=== PATIENT | female | born 1995 | race Caucasian/White ===

== ENCOUNTER 2017-01-15 17:11 | Inpatient (IN) | payer OTHER ==
--- NOTE | 2017-01-15 18:10 | C.PDOC ---
History Per: Patient History/Exam Limitations: no limitations Onset/Duration Of Symptoms: Days (2) Current Symptoms Are (Timing): Still Present Location Of Pain/Discomfort: RLQ Radiation Of Pain To:: None Quality Of Discomfort: "Pain" Associated Symptoms: denies: Loss Of Appetite, Back Pain, Chest Pain, Constipation, Urinary Symptoms Exacerbating Factors: None Alleviating Factors: None Recent travel outside of the [place]: No Additional History Per: Patient Abnormal Vaginal Bleeding: No Last Menstral Period: 12/26/16 <Suri Ghosh - Last Filed: 01/15/17 19:05> <Jaime Porter - Last Filed: 01/16/17 01:06> Time Seen by Provider: 01/15/17 17:32 Chief Complaint (Nursing): Abdominal Pain Past Medical History Reviewed: Historical Data, Nursing Documentation, Vital Signs Surgical History: Appendectomy Family History: States: No Known Family Hx - Social History Hx Alcohol Use: No Hx Substance Use: No - Immunization History Hx Tetanus Toxoid Vaccination: No Hx Influenza Vaccination: No Hx Pneumococcal Vaccination: No <Suri Ghosh Last Filed: 01/15/17 19:05> Review Of Systems Constitutional: Negative for: Fever, Chills Gastrointestinal: Positive for: Abdominal Pain (RLQ). Negative for: Nausea, Vomiting, Diarrhea, Constipation Genitourinary: Negative for: Dysuria, Frequency, Incontinence, Hematuria, Vaginal Discharge, Vaginal Bleeding Musculoskeletal: Negative for: Back Pain <Suri Ghosh Last Filed: 01/15/17 19:05> Physical Exam - Physical Exam Appears: Non-toxic, No Acute Distress Skin: Normal Color, Warm, Dry Head: Atraumatic, Normacephalic Eye(s): bilateral: Normal Inspection Oral Mucosa: Moist Neck: Normal ROM, Supple Cardiovascular: Rhythm Regular, No Murmur Respiratory: Normal Breath Sounds, No Rales, No Rhonchi, No Wheezing Gastrointestinal/Abdominal: Bowel Sounds, Soft, Tenderness (RLQ), No Guarding, No Rebound Back: Normal Inspection, No CVA Tenderness Pelvic: No Cervical Motion Tenderness, Adnexal Tenderness (right) Extremity: Bilateral: Atraumatic, Normal ROM Neurological/Psych: Oriented x3, Normal Speech, Normal Cognition <Suri Ghosh Last Filed: 01/15/17 19:05> ED Course And Treatment O2 Sat by Pulse Oximetry: 100 (on RA) Pulse Ox Interpretation: Normal <Suri Ghosh - Last Filed: 01/15/17 19:05> - Laboratory Results Result Diagrams: 01/15/17 18:53 01/15/17 18:53 <Jaime Porter - Last Filed: 01/16/17 01:06> ED OBSERVATION <Suri Ghosh - Last Filed: 01/15/17 19:05> Date of observation admission: 01/15/17 Time of observation admission: 21:25 <Jaime Porter - Last Filed: 01/16/17 01:06> - Observation admission statement Patient is being placed in observation because:: abdominal pain (Jaime Porter) - Goals of Observation Goals of observation are:: CT (Jaime Porter) - Progress Note Progress Note: 2124 Signed out to me at change of shift pending US and labs. Patient with mild leukocytosis. US shows normal flow, normal US. Patient with RLQ tenderness, which began as diffuse abdominal pain yesterday morning and states feels just like her stump appendicitis that she had before. Will send for CT to rule out stump appendicitis. 2211 Patient in no distress. 0105 IMPRESSION: 1. Acute stump appendicitis. 2. Involuting or ruptured RIGHT ovarian follicle/cyst. 3. Incidental/non-acute findings are described above. (Jaime Porter) Disposition - Disposition Disposition Time: 19:07 <Suri Ghosh - Last Filed: 01/15/17 19:05> Discussed With : Omar Al <Jaime Porter - Last Filed: 01/16/17 01:06> - Disposition Disposition: HOSPITALIZED Condition: STABLE - Clinical Impression Clinical Impression: Abdominal pain, Acute appendicitis - PA / GAS TECHNICIAN / Resident Statement MD/DO has reviewed & agrees with the documentation as recorded. - Scribe Statement The provider has reviewed the documentation as recorded by the Scribe <Suri Ghosh - Last Filed: 01/15/17 19:05> <Jaime Porter - Last Filed: 01/16/17 01:06> - Scribe Statement Karthik Peña All medical record entries made by the Scribe were at my direction and personally dictated by me. I have reviewed the chart and agree that the record accurately reflects my personal performance of the history, physical exam, medical decision making, and the department course for this patient. I have also personally directed, reviewed, and agree with the discharge instructions and disposition. (Suri Ghosh) Physician Patient Turnover Patient Signed Over To: Jaime Porter Handoff Comments: 22 y/o with rlq pain x 2 days s/p appy 09/03, stump appendicitis in 12/03; f/u labs and transvaginal ultrasound.; may require ct. <Suri Ghosh - Last Filed: 01/15/17 19:05>
[2017-01-15 18:49] LABS: RBC URINE 4 /hpf (0-3); TRANSITIONAL EPITHIAL < 1 /hpf (0-3); URINE BACTERIA RARE (<OCC); URINE BILIRUBIN NEGATIVE (NEGATIVE); URINE BLOOD 1+ (NEGATIVE); URINE COLOR Yellow (YELLOW); URINE GLUCOSE (UA) NORMAL (Normal); URINE KETONE TRACE mg/dL (NEGATIVE); URINE PROTEIN NEGATIVE (NEGATIVE); URINE UROBILINOGEN NORMAL mg/dL (0.2-1.0); WBC URINE 7 /hpf (0-5)
[2017-01-15 18:50] LABS: URINE LEUKOCYTE ESTERASE 1+ Leu/uL (Negative)
[2017-01-15 19:04] LABS: CHLORIDE 100 mmol/L (98-107); POTASSIUM 3.3 mmol/L (3.6-5.2); SODIUM 139 mmol/L (132-148)
[2017-01-15 19:06] LABS: GFR AFRICAN-AMERICAN > 60
[2017-01-15 19:07] LABS: ALB/GLOB RATIO 1.2 (1.0-2.1); ALKALINE PHOSPHATASE 82 U/L (38-126); ALT/SGPT 31 U/L (9-52); AST/SGOT 17 U/L (14-36); BILIRUBIN,TOTAL 0.6 mg/dL (0.2-1.3); BLOOD UREA NITROGEN 12 mg/dL (7-17); CALCIUM 8.7 mg/dl (8.6-10.4); CARBON DIOXIDE 25 mmol/L (22-30); GLUCOSE,RANDOM 85 mg/dL (65-105); TOTAL PROTEIN 7.2 g/dL (6.3-8.3)
[2017-01-15 19:09] LABS: BASO % 0.3 % (0.0-2.0); EOS % 7.8 % (0.0-4.0); HEMATOCRIT 37.2 % (34.0-47.0); LYMPH # 3.6 K/uL (1.0-4.3); LYMPH % 29.1 % (20.0-40.0); MEAN CELL VOLUME 92.9 fL (81.0-99.0); MEAN CORPUSCULAR HEMOGLOBIN 31.1 pg (27.0-31.0); MEAN CORPUSCULAR HGB CONC 33.5 g/dL (33.0-37.0); MEAN PLATELET VOLUME 9.1 fL (7.2-11.7); MONO # 0.8 K/uL (0.0-0.8); MONO % 6.8 % (0.0-10.0); RED CELL DISTRIBUTION WIDTH 13.3 % (11.5-14.5); WHITE BLOOD COUNT 12.2 K/uL (4.8-10.8)
--- NOTE | 2017-01-15 21:26 | US ---
EXAM: US Pelvis Complete, Transabdominal US Pelvis, Transvaginal CLINICAL HISTORY: 22 years old, female; Pain; Pelvic pain; Additional info: Right pelvic pain TECHNIQUE: Real-time transabdominal and transvaginal pelvic ultrasound (complete) with image documentation. Transvaginal imaging was used for better evaluation of the endometrium and adnexa. COMPARISON: No relevant prior studies available. FINDINGS: Uterus/cervix: The uterus measures 7.5 x 4.2 x 6.1 cm. The endometrial stripe measures 9 mm. Ovaries: The ovaries are not seen as separate structures Free fluid: No free fluid. Bladder: Unremarkable as visualized. Wall is normal thickness for degree of distention. IMPRESSION: Ovaries not seen as separate structures.. EXAM: US Pelvis, Transvaginal EXAM DATE/TIME: Exam ordered 01/15/2017 6:38 PM CLINICAL HISTORY: 22 years old, female; Pain; Pelvic pain; Additional info: Right pelvic pain TECHNIQUE: Real-time transvaginal pelvic ultrasound (complete) with image documentation. Transvaginal imaging was used for better evaluation of the endometrium and adnexa. COMPARISON: No relevant prior studies available. FINDINGS: Uterus/cervix: The uterus measures 6.9 x 3.5 x 4.4 cm. Endometrial stripe measures 1 cm in thickness. Right ovary: Right ovary measures 2.8 x 2 x 2.3 cm and contains a subcentimeter follicle. Blood flow is seen within the right ovary on color Doppler and pulse Doppler examination. Left ovary: The left ovary measures 3.2 x 1.2 x 2.7 cm. Subcentimeter follicles are present. Blood flow seen in the left ovary on color Doppler and pulsed Doppler examination. Free fluid: Small amount of free fluid is seen in the posterior cul-de-sac. Bladder: Empty bladder which cannot be evaluated with this probe. IMPRESSION: Normal pelvic ultrasound for a menstruating female.
[2017-01-15] MEDS ORDERED: Iohexol 240 (50 ml) ONE (22:35)
[2017-01-15] MEDS ORDERED: Iohexol 240 (50 ml) PO ONE (22:44)
[2017-01-15] MEDS ORDERED: Iodixanol 320 MG/ML 100 ML BOTTLE IV ONE (23:51)
--- NOTE | 2017-01-16 00:38 | CT ---
EXAM: CT Abdomen and Pelvis With Intravenous Contrast CLINICAL HISTORY: 22 years old, female; Pain; Abdominal pain; Localized; Right lower quadrant (rlq); Prior surgery; Surgery date: 6+ months; Additional info: Rlq pain, evaluate for stump appendicitis. Appendectomy 08/2016 TECHNIQUE: Axial computed tomography images of the abdomen and pelvis with intravenous contrast. All CT scans at this facility use one or more dose reduction techniques, viz.: automated exposure control; ma/kV adjustment per patient size (including targeted exams where dose is matched to indication; i.e. head); or iterative reconstruction technique. Coronal and sagittal reformatted images were created and reviewed. CONTRAST: 100 mL of [id number] administered intravenously. COMPARISON: No relevant prior studies available. FINDINGS: Lower thorax: No acute findings. ABDOMEN: Liver: Unremarkable. No mass. Gallbladder and bile ducts: No calcified stones. No ductal dilation. Pancreas: No ductal dilation. No mass. Spleen: No splenomegaly. Adrenals: No mass. Kidneys and ureters: No mass. No hydronephrosis. Stomach and bowel: No definite mural thickening. No obstruction. Appendix: Appendectomy. Enlarged appendiceal stump, measuring up to 1.0 in diameter. Mild stranding about appendiceal stump. PELVIS: Bladder: Unremarkable. Reproductive: 1.7 x 1.2 x 1.3 cm peripherally enhancing hypodensity with crenulated margins within RIGHT ovary. ABDOMEN and PELVIS: Intraperitoneal space: Trace free fluid within pelvis. No free air. Bones/joints: No acute fracture. Soft tissues: Unremarkable. Vasculature: Prominent vessels within pelvis. No aneurysm. Lymph nodes: No pathologically enlarged lymph nodes. IMPRESSION: 1. Acute stump appendicitis. 2. Involuting or ruptured RIGHT ovarian follicle/cyst. 3. Incidental/non-acute findings are described above.
[2017-01-16] MEDS ORDERED: Piperacill/Tazo 4.5gm in Dex 4.5 GM/100 ML BAG IVPB STA (00:51)
[2017-01-16] MEDS: Sodium Chloride 0.9% 1,000 ML IV SCH ×2 (03:00→17:32)
[2017-01-16] MEDS ORDERED: Ciprofloxacin 400mg/200ml D5W 400 MG/200 ML BAG IVPB SCH (03:00)
--- NOTE | 2017-01-16 03:23 | CP.PCM.HP ---
<Kim Lora E - Last Filed: 01/16/17 07:12> History of Present Illness - History of Present Illness History of Present Illness: CC: RLQ Abdominal Pain HPI: Patient is a 22 year old female with no past medical history who presents to the ED with RLQ abdominal pain that started yesterday at 8:30pm, while the patient was asleep. Patient states that her abdominal pain was initially diffuse in nature but it is currently localized to the RLQ and LLQ. Patient states that her RLQ abdominal pain is a constant 8/10 pulsating and pulling pain , while her LLQ pain is a 10/10 intermittent pain. Furthermore, patient reports diffuse cramping abdominal pain. Patient states that her pain is exacerbated with positional changes and sitting. Patient states that she had similar episode December 14, 2016, where she was admitted to [facility] and diagnosed with acute stump appendicitis. Patient was treated with IV antibiotics and was discharged with PO antibiotics. Patient states since her hospitalization at [facility], she has been experiencing intermittent abdominal distention. Currently, patient denies fever, nausea, vomiting, chest pain, SOB, diarrhea, constipation, change in bowel habits, hematochezia, urinary symptoms, change in appetite, recent sickness or contact but does admits to night sweats, chills and headache. PMD: None PMHx: denies PSHx: Appendectomy (09/15/[address] [facility] [address] Yesi Huerta) FHx: Mother: Nephroliathiasis Medications: None Allergies: NKDA Social History: Unemployed, lives with boyfriend and daughter. Denies tobacco, ETOH and illicit drug use Medications given in the ER: Zosyn 4.5gm IV Present on Admission - Present on Admission Any Indicators Present on Admission: No Review of Systems - Constitutional Constitutional: Chills, Headache, Night Sweats. absent: Excessive Sweating, Fever, Weight Gain, Weight Loss, Weakness - EENT Ears: absent: Dizziness - Cardiovascular Cardiovascular: absent: Chest Pain, Chest Pain at Rest, Chest Pain with Activity , Diaphoresis, Dyspnea, Palpitations, Radiating Pain - Respiratory Respiratory: absent: Dyspnea - Gastrointestinal Gastrointestinal: Abdominal Pain, Cramping. absent: Constipation, Diarrhea, Dysphagia, Hematochezia, Nausea, Vomiting Additional comments: Diffuse abdominal pain, more localized to the RLQ and LLQ - Genitourinary Genitourinary: absent: Dysuria, Flank Pain, Pyuria, Urinary Frequency, Urinary Urgency - Musculoskeletal Musculoskeletal: absent: Back Pain, Numbness, Tingling - Neurological Neurological: Headaches. absent: Dizziness - Endocrine Endocrine: absent: Excessive Sweating, Fatigue, Palpitations Past Patient History - Past Medical History & Family History Past Medical History?: Yes - Past Social History Smoking Status: Never Smoked - CARDIAC Hx Cardiac Disorders: No - PULMONARY Hx Respiratory Disorders: No - NEUROLOGICAL Hx Neurological Disorder: No - HEENT Hx HEENT Problems: No - RENAL Hx Chronic Kidney Disease: No - ENDOCRINE/METABOLIC Hx Endocrine Disorders: No - HEMATOLOGICAL/ONCOLOGICAL Hx Blood Disorders: No - INTEGUMENTARY Hx Dermatological Problems: No - MUSCULOSKELETAL/RHEUMATOLOGICAL Hx Musculoskeletal Disorders: No Hx Falls: No - GASTROINTESTINAL Hx Gastrointestinal Disorders: No - GENITOURINARY/GYNECOLOGICAL Hx Genitourinary Disorders: No - PSYCHIATRIC Hx Psychophysiologic Disorder: No Hx Substance Use: No - SURGICAL HISTORY Hx Appendectomy: Yes (09/15/2016) - ANESTHESIA Hx Anesthesia: Yes Hx Anesthesia Reactions: No Meds Allergies/Adverse Reactions: Allergies Allergy/AdvReac Type Severity Reaction Status Date / Time No Known Allergies Allergy Verified 01/15/17 17:17 Physical Exam - Constitutional Appears: No Acute Distress - Head Exam Head Exam: ATRAUMATIC, NORMAL INSPECTION - Eye Exam Eye Exam: EOMI, Normal appearance - ENT Exam ENT Exam: Mucous Membranes Moist, Normal Exam - Respiratory Exam Respiratory Exam: Clear to Auscultation Bilateral, NORMAL BREATHING PATTERN - Cardiovascular Exam Cardiovascular Exam: REGULAR RHYTHM, +S1, +S2 - GI/Abdominal Exam GI & Abdominal Exam: Normal Bowel Sounds, Soft, Tenderness Additional comments: RLQ and LLQ abdominal tenderness - Extremities Exam Extremities exam: Positive for: normal capillary refill, normal inspection. Negative for: calf tenderness, pedal edema - Back Exam Back exam: absent: CVA tenderness (L), CVA tenderness (R) - Neurological Exam Neurological exam: Alert, Oriented x3 - Psychiatric Exam Psychiatric exam: Normal Affect, Normal Mood - Skin Skin Exam: Normal Color, Warm Results - Vital Signs Recent Vital Signs: Last Vital Signs Temp 98 F 01/16/17 02:10 Pulse 72 01/16/17 02:10 Resp 20 01/16/17 02:10 BP 96/60 L 01/16/17 02:10 Pulse Ox 100 01/16/17 02:10 - Labs Result Diagrams: 01/15/17 18:53 01/15/17 18:53 Assessment & Plan (1) Right lower quadrant abdominal pain Assessment and Plan: Surgical Consult, Dr. Carr---> Help appreciated * F/u recommendation Secondary to acute stump appendicitis as per CT abdomen/pelvis Stable, Afebrile Labs: WBC: 12.2 Imaging: CT abdomen/pelvis: Acute stump appendicitis Medications: -Cipro 400mg IV Q12H -Flagyl 500mg IV Q8H -Toradol 30mg IV Q6H Status: Acute (2) Prophylactic measure Assessment and Plan: Ambulating SCDs Pepcid 20mg PO BID Florastor 250mg PO BID Status: Acute <Omar Al P - Last Filed: 01/26/17 19:32> Results - Vital Signs Recent Vital Signs: Last Vital Signs Temp 97.6 F 01/17/17 07:00 Pulse 65 01/17/17 07:00 Resp 20 01/17/17 07:00 BP 91/56 L 01/17/17 07:00 Pulse Ox 97 01/17/17 07:00 - Labs Result Diagrams: 01/17/17 07:30 01/17/17 07:30 Attending/Attestation - Attestation I have personally seen and examined this patient.: Yes I have fully participated in the care of the patient.: Yes I have reviewed all pertinent clinical information: Yes
[2017-01-16] MEDS: Saccharomyces Boulardi 250 mg Cap PO SCH ×3 (03:47→17:31)
[2017-01-16] MEDS ORDERED: Potassium Chloride 20 mEq ER Tab PO ONE (05:03)
[2017-01-16] MEDS: metroNIDAZOLE IV 500 mg/100 ml 500 MG/100 ML BAG IVPB SCH ×3 (05:42→21:46)
--- NOTE | 2017-01-16 08:39 | CP.PCM.CON ---
History of Present Illness - History of Present Illness History of Present Illness: CONSULT SURGERY NOTE FOR DR. TEAGUE Patient is a 22yo female presenting with a hx of diffuse abdominal pain since 8: 30AM on Sunday 01/14. Today patient states her pain is localized to RLQ and is rated a 4/10 without radiation. She states her hospital abx and pain medications alleviate her symptoms. Patient denies fevers, chills, nausea, vomiting. Complete 12-point ROS otherwise negative. PMHx: None PSHx: Appendectomy 09/15/[address] Lorenzana at [facility] Allergies: NKDA FHx: Mother nephrolithiasis Medications: None Social: Denies tobacco, alcohol, IV drug use. Past Patient History - Past Medical History & Family History Past Medical History?: Yes - Past Social History Smoking Status: Never Smoked - CARDIAC Hx Cardiac Disorders: No - PULMONARY Hx Respiratory Disorders: No - NEUROLOGICAL Hx Neurological Disorder: No - HEENT Hx HEENT Problems: No - RENAL Hx Chronic Kidney Disease: No - ENDOCRINE/METABOLIC Hx Endocrine Disorders: No - HEMATOLOGICAL/ONCOLOGICAL Hx Blood Disorders: No - INTEGUMENTARY Hx Dermatological Problems: No - MUSCULOSKELETAL/RHEUMATOLOGICAL Hx Musculoskeletal Disorders: No Hx Falls: No - GASTROINTESTINAL Hx Gastrointestinal Disorders: No - GENITOURINARY/GYNECOLOGICAL Hx Genitourinary Disorders: No - PSYCHIATRIC Hx Psychophysiologic Disorder: No Hx Substance Use: No - SURGICAL HISTORY Hx Appendectomy: Yes (09/15/2016) - ANESTHESIA Hx Anesthesia: Yes Hx Anesthesia Reactions: No Meds Allergies/Adverse Reactions: Allergies Allergy/AdvReac Type Severity Reaction Status Date / Time No Known Allergies Allergy Verified 01/15/17 17:17 - Medications Medications: Current Medications Famotidine (Pepcid) 20 mg PO BID [facility] Last Admin: 01/16/17 03:47 Dose: 20 mg Sodium Chloride (Sodium Chloride 0.9%) 1,000 mls @ 70 mls/hr IV .[id number] [facility] Last Admin: 01/16/17 03:00 Dose: 70 mls/hr Ciprofloxacin (Cipro 400mg/200ml Dsw) 400 mg in 200 mls @ 133 mls/hr IVPB Q12H [facility] Last Admin: 01/16/17 03:15 Dose: 133 mls/hr Metronidazole (Flagyl) 500 mg in 100 mls @ 100 mls/hr IVPB Q8 [facility] Last Admin: 01/16/17 05:42 Dose: 100 mls/hr Ketorolac Tromethamine (Toradol) 30 mg IV Q6 PRN PRN Reason: Pain, moderate (4-7) Last Admin: 01/16/17 03:48 Dose: 30 mg Saccharomyces Boulardii (Florastor) 250 mg PO BID [facility] Last Admin: 01/16/17 03:47 Dose: 250 mg Physical Exam - Constitutional Appears: Non-toxic - Head Exam Head Exam: ATRAUMATIC, NORMAL INSPECTION - Eye Exam Eye Exam: EOMI, Normal appearance. absent: Scleral icterus - ENT Exam ENT Exam: Mucous Membranes Moist - Respiratory Exam Respiratory Exam: Clear to Auscultation Bilateral, NORMAL BREATHING PATTERN. absent: Respiratory Distress - Cardiovascular Exam Cardiovascular Exam: REGULAR RHYTHM. absent: Bradycardia, Tachycardia - GI/Abdominal Exam GI & Abdominal Exam: Normal Bowel Sounds, Soft, Tenderness. absent: Rebound, Rigid Additional comments: Tender to palpation in RLQ - Extremities Exam Extremities exam: Positive for: normal inspection, pedal pulses present. Negative for: pedal edema - Neurological Exam Neurological exam: Alert, Oriented x3 - Psychiatric Exam Psychiatric exam: Normal Affect, Normal Mood - Skin Skin Exam: Dry, Intact, Normal Color Results - Vital Signs Recent Vital Signs: Last Vital Signs Temp 98 F 01/16/17 02:10 Pulse 72 01/16/17 02:10 Resp 20 01/16/17 02:10 BP 96/60 L 01/16/17 02:10 Pulse Ox 100 01/16/17 02:10 - Labs Result Diagrams: 01/15/17 18:53 01/15/17 18:53 Assessment & Plan - Assessment and Plan (Free Text) Assessment: 22 y/o F presenting with RLQ abdominal pain -Most likely stump appendicitis 2/2 recent appendectomy -CT findings: Enlarged appendiceal stump measuring 1.0 in in diameter with associated stranding. -Abx -Serial abdominal exams Discussed with Dr. Bruno Montalvo, PGY2
[2017-01-16] MEDS: Piperacill/Tazo 3.375gm in Dex 3.375 GM/50 ML BAG IVPB SCH ×3 (11:28→22:54)
[2017-01-16 11:52] LABS: BASO % 0.3 % (0.0-2.0); EOS # 0.9 K/uL (0.0-0.7); EOS % 8.9 % (0.0-4.0); HEMATOCRIT 35.9 % (34.0-47.0); LYMPH # 3.1 K/uL (1.0-4.3); LYMPH % 31.6 % (20.0-40.0); MEAN CELL VOLUME 92.2 fL (81.0-99.0); MEAN CORPUSCULAR HEMOGLOBIN 31.2 pg (27.0-31.0); MEAN CORPUSCULAR HGB CONC 33.8 g/dL (33.0-37.0); MEAN PLATELET VOLUME 9.1 fL (7.2-11.7); MONO # 0.6 K/uL (0.0-0.8); RED CELL DISTRIBUTION WIDTH 13.2 % (11.5-14.5); WHITE BLOOD COUNT 9.9 K/uL (4.8-10.8)
[2017-01-16 12:06] LABS: CHLORIDE 103 mmol/L (98-107); SODIUM 139 mmol/L (132-148)
[2017-01-16 12:08] LABS: GFR AFRICAN-AMERICAN > 60
[2017-01-16 12:09] LABS: ALB/GLOB RATIO 1.1 (1.0-2.1); ALKALINE PHOSPHATASE 77 U/L (38-126); ALT/SGPT 32 U/L (9-52); AST/SGOT 21 U/L (14-36); BILIRUBIN,TOTAL 0.9 mg/dL (0.2-1.3); BLOOD UREA NITROGEN 10 mg/dL (7-17); CALCIUM 8.5 mg/dl (8.6-10.4); CARBON DIOXIDE 24 mmol/L (22-30); GLUCOSE,RANDOM 80 mg/dL (65-105); TOTAL PROTEIN 6.9 g/dL (6.3-8.3)
[2017-01-16 12:10] LABS: MAGNESIUM 2.1 mg/dL (1.6-2.3)
--- NOTE | 2017-01-16 14:47 | CP.PCM.PN ---
<Noy Barakat - Last Filed: 01/16/17 14:45> Subjective - Date & Time of Evaluation Date of Evaluation: 01/16/17 Time of Evaluation: 07:00 - Subjective Subjective: PGY-1, Medicine Note, Dr. Lindo's Service Patient seen and examined at bedside and in no acute distress. Patient only complains of mild abdominal pain to palpation. When she is resting she says she has very minimal pain. She was able to urinate and was able to have a BM. Patient denies nausea or vomiting. Objective - Vital Signs/Intake and Output Vital Signs (last 24 hours): Temp Pulse Resp BP Pulse Ox 97.7 F 69 20 98/61 L 98 01/16/17 08:00 01/16/17 08:00 01/16/17 08:00 01/16/17 08:00 01/16/17 08:00 Intake and Output: 01/16/17 01/16/17 06:59 18:59 Intake Total 70 Balance 70 - Medications Medications: Current Medications Famotidine (Pepcid) 20 mg PO BID [facility] Last Admin: 01/16/17 10:55 Dose: 20 mg Sodium Chloride (Sodium Chloride 0.9%) 1,000 mls @ 70 mls/hr IV .[id number] [facility] Last Admin: 01/16/17 03:00 Dose: 70 mls/hr Metronidazole (Flagyl) 500 mg in 100 mls @ 100 mls/hr IVPB Q8 [facility] Last Admin: 01/16/17 13:51 Dose: 100 mls/hr Piperacillin Sod/Tazobactam Sod (Zosyn 3.375 Gm Iv Premix) 3.375 gm in 50 mls @ 100 mls/hr IVPB Q6H [facility] Last Admin: 01/16/17 11:28 Dose: 100 mls/hr Ketorolac Tromethamine (Toradol) 30 mg IV Q6 PRN PRN Reason: Pain, moderate (4-7) Last Admin: 01/16/17 03:48 Dose: 30 mg Saccharomyces Boulardii (Florastor) 250 mg PO BID [facility] Last Admin: 01/16/17 10:55 Dose: 250 mg - Labs Labs: 01/16/17 11:36 01/16/17 11:36 - Constitutional Appears: Well, Non-toxic, No Acute Distress - Head Exam Head Exam: ATRAUMATIC, NORMAL INSPECTION, NORMOCEPHALIC - Eye Exam Eye Exam: EOMI, Normal appearance - ENT Exam ENT Exam: Mucous Membranes Moist - Neck Exam Neck Exam: Full ROM. absent: Lymphadenopathy - Respiratory Exam Respiratory Exam: Clear to Ausculation Bilateral, NORMAL BREATHING PATTERN. absent: Rales, Rhonchi, Wheezes, Respiratory Distress, Stridor - Cardiovascular Exam Cardiovascular Exam: REGULAR RHYTHM, RRR. absent: Gallop, Rubs, Murmur - GI/Abdominal Exam GI & Abdominal Exam: Soft, Tenderness, Normal Bowel Sounds Additional comments: mild tenderness to lower right quadrant palpation - Extremities Exam Extremities Exam: Full ROM, Normal Inspection. absent: Pedal Edema - Neurological Exam Neurological Exam: Alert, Awake, Oriented x3 - Psychiatric Exam Psychiatric exam: Normal Affect, Normal Mood - Skin Skin Exam: Intact, Normal Color, Warm Assessment and Plan - Assessment and Plan (Free Text) Assessment: (1) Right lower quadrant abdominal pain Assessment and Plan: Secondary to acute stump appendicitis as per CT abdomen/pelvis Surgical Consult, Dr. Carr---> Help appreciated * will keep patient on antibiotics, no surgical intervention at this time afebrile WBC decreased to 9.9 on 01/[address] abdomen/pelvis: Acute stump appendicitis Medications: -Cipro 400mg IV Q12H -Flagyl 500mg IV Q8H -Toradol 30mg IV Q6H Status: Acute (2) Prophylactic measure Assessment and Plan: Ambulating SCDs Pepcid 20mg PO BID Florastor 250mg PO BID Status: Acute <Hai Lindo M - Last Filed: 01/17/17 14:42> Objective - Vital Signs/Intake and Output Vital Signs (last 24 hours): Temp Pulse Resp BP Pulse Ox 97.6 F 65 20 91/56 L 97 01/17/17 07:00 01/17/17 07:00 01/17/17 07:00 01/17/17 07:00 01/17/17 07:00 - Medications Medications: Current Medications Famotidine (Pepcid) 20 mg PO BID [facility] Last Admin: 01/17/17 09:31 Dose: 20 mg Sodium Chloride (Sodium Chloride 0.9%) 1,000 mls @ 70 mls/hr IV .[id number] [facility] Last Admin: 01/17/17 08:22 Dose: Not Given Metronidazole (Flagyl) 500 mg in 100 mls @ 100 mls/hr IVPB Q8 [facility] Last Admin: 01/17/17 13:09 Dose: 100 mls/hr Piperacillin Sod/Tazobactam Sod (Zosyn 3.375 Gm Iv Premix) 3.375 gm in 50 mls @ 100 mls/hr IVPB Q6H [facility] Last Admin: 01/17/17 09:31 Dose: 100 mls/hr Ketorolac Tromethamine (Toradol) 30 mg IV Q6 PRN PRN Reason: Pain, moderate (4-7) Last Admin: 01/16/17 03:48 Dose: 30 mg Saccharomyces Boulardii (Florastor) 250 mg PO BID [facility] Last Admin: 01/17/17 09:31 Dose: 250 mg - Labs Labs: 01/17/17 07:30 01/17/17 07:30 Attending/Attestation - Attestation I have personally seen and examined this patient.: Yes I have fully participated in the care of the patient.: Yes I have reviewed all pertinent clinical information, including history, physical exam and plan: Yes Notes (Text): 01/17/17 14:41 Patient was seen and examined at bedside with the resident Complains of abdominal pain and some start IV fluids Surgery evaluation in progress Discussed the plan of care with the resident and agree with the assessment plan documented.
[2017-01-17 01:42] VITALS: RESP 20
[2017-01-17] MEDS: Piperacill/Tazo 3.375gm in Dex 3.375 GM/50 ML BAG IVPB SCH ×2 (03:51→09:31)
[2017-01-17] MEDS: metroNIDAZOLE IV 500 mg/100 ml 500 MG/100 ML BAG IVPB SCH ×2 (05:02→13:09)
[2017-01-17 07:48] LABS: BASO % 0.2 % (0.0-2.0); EOS # 1.1 K/uL (0.0-0.7); EOS % 12.1 % (0.0-4.0); HEMATOCRIT 35.7 % (34.0-47.0); LYMPH # 3.2 K/uL (1.0-4.3); LYMPH % 36.2 % (20.0-40.0); MEAN CELL VOLUME 92.8 fL (81.0-99.0); MEAN CORPUSCULAR HEMOGLOBIN 31.2 pg (27.0-31.0); MEAN CORPUSCULAR HGB CONC 33.6 g/dL (33.0-37.0); MEAN PLATELET VOLUME 9.2 fL (7.2-11.7); MONO # 0.5 K/uL (0.0-0.8); MONO % 5.2 % (0.0-10.0); NRBC % 0.1 % (0.0-2.0); RED CELL DISTRIBUTION WIDTH 13.2 % (11.5-14.5); WHITE BLOOD COUNT 8.7 K/uL (4.8-10.8)
[2017-01-17 07:57] VITALS: BP 91/56; PULSE 65; TEMP 97.6; O2SAT 97
[2017-01-17 07:59] LABS: CHLORIDE 104 mmol/L (98-107); POTASSIUM 3.7 mmol/L (3.6-5.2); SODIUM 141 mmol/L (132-148)
[2017-01-17 08:01] LABS: ALB/GLOB RATIO 1.1 (1.0-2.1); ALKALINE PHOSPHATASE 69 U/L (38-126); AST/SGOT 16 U/L (14-36); BILIRUBIN,TOTAL 1.2 mg/dL (0.2-1.3); CARBON DIOXIDE 23 mmol/L (22-30); GFR AFRICAN-AMERICAN > 60; TOTAL PROTEIN 6.5 g/dL (6.3-8.3)
[2017-01-17 08:02] LABS: ALT/SGPT 29 U/L (9-52); BLOOD UREA NITROGEN 9 mg/dL (7-17); CALCIUM 8.4 mg/dl (8.6-10.4); GLUCOSE,RANDOM 80 mg/dL (65-105)
[2017-01-17] MEDS: Sodium Chloride 0.9% 1,000 ML IV SCH (08:22)
--- NOTE | 2017-01-17 08:41 | CP.PCM.PN ---
Subjective - Date & Time of Evaluation Date of Evaluation: 01/17/17 Time of Evaluation: 08:37 - Subjective Subjective: General Surgery - Dr. Carr Pt S&E. NAEO. Pt states that her abdominal pain is much better today. She tolerated clear liquids yesterday and wants to try solid food today. No F/C, SOb/Cp, N/V. Objective - Vital Signs/Intake and Output Vital Signs (last 24 hours): Temp Pulse Resp BP Pulse Ox 97.6 F 65 20 91/56 L 97 01/17/17 07:00 01/17/17 07:00 01/17/17 07:00 01/17/17 07:00 01/17/17 07:00 - Medications Medications: Current Medications Famotidine (Pepcid) 20 mg PO BID [facility] Last Admin: 01/16/17 17:31 Dose: 20 mg Sodium Chloride (Sodium Chloride 0.9%) 1,000 mls @ 70 mls/hr IV .[id number] [facility] Last Admin: 01/17/17 08:22 Dose: Not Given Metronidazole (Flagyl) 500 mg in 100 mls @ 100 mls/hr IVPB Q8 [facility] Last Admin: 01/17/17 05:02 Dose: 100 mls/hr Piperacillin Sod/Tazobactam Sod (Zosyn 3.375 Gm Iv Premix) 3.375 gm in 50 mls @ 100 mls/hr IVPB Q6H [facility] Last Admin: 01/17/17 03:51 Dose: 100 mls/hr Ketorolac Tromethamine (Toradol) 30 mg IV Q6 PRN PRN Reason: Pain, moderate (4-7) Last Admin: 01/16/17 03:48 Dose: 30 mg Saccharomyces Boulardii (Florastor) 250 mg PO BID [facility] Last Admin: 01/16/17 17:31 Dose: 250 mg - Labs Labs: 01/17/17 07:30 01/17/17 07:30 - Constitutional Appears: No Acute Distress - Head Exam Head Exam: ATRAUMATIC, NORMAL INSPECTION, NORMOCEPHALIC - Eye Exam Eye Exam: Normal appearance - Respiratory Exam Respiratory Exam: NORMAL BREATHING PATTERN - GI/Abdominal Exam GI & Abdominal Exam: Soft. absent: Distended, Firm, Guarding, Tenderness, Rebound - Neurological Exam Neurological Exam: Alert, Oriented x3 - Psychiatric Exam Psychiatric exam: Normal Affect, Normal Mood - Skin Skin Exam: Dry, Intact Assessment and Plan - Assessment and Plan (Free Text) Assessment: 22 y/o F w/ RLQ abdominal pain poss d/t stump appendicitis -Pain resolved -Afebrile, WBC WNL -Tolerating liquid diet, will advance to regular -Continue Abx -OOB/Ambulation -No plans for surgical intervention DW Dr Bruno Tirado PGY3
[2017-01-17] MEDS: Saccharomyces Boulardi 250 mg Cap PO SCH (09:31)
--- NOTE | 2017-01-17 14:27 | CP.PCM.DIS ---
<Noy Barakat - Last Filed: 01/17/17 14:25> Provider - Provider Date of Admission: 01/16/17 01:03 Attending physician: Omar Al MD Consults: Dr. Huerta (surgery) Time Spent in preparation of Discharge (in minutes): 45 Diagnosis - Discharge Diagnosis (1) Acute appendicitis Status: Acute Comment: Please see summary for details Hospital Course - Lab Results Lab Results: Most Recent Lab Values WBC 8.7 K/uL (4.8-10.8) 01/17/17 07:30 RBC 3.85 Mil/uL (3.80-5.20) 01/17/17 07:30 Hgb 12.0 g/dL (11.0-16.0) 01/17/17 07:30 Hct 35.7 % (34.0-47.0) 01/17/17 07:30 MCV 92.8 fL (81.0-99.0) 01/17/17 07:30 MCH 31.2 pg (27.0-31.0) H 01/17/17 07:30 MCHC 33.6 g/dL (33.0-37.0) 01/17/17 07:30 RDW 13.2 % (11.5-14.5) 01/17/17 07:30 Plt Count 215 K/uL (130-400) 01/17/17 07:30 MPV 9.2 fL (7.2-11.7) 01/17/17 07:30 Neut % (Auto) 46.3 % (50.0-75.0) L 01/17/17 07:30 Lymph % (Auto) 36.2 % (20.0-40.0) 01/17/17 07:30 [place] % (Auto) 5.2 % (0.0-10.0) 01/17/17 07:30 Eos % (Auto) 12.1 % (0.0-4.0) H 01/17/17 07:30 Baso % (Auto) 0.2 % (0.0-2.0) 01/17/17 07:30 Neut # 4.0 K/uL (1.8-7.0) 01/17/17 07:30 Lymph # 3.2 K/uL (1.0-4.3) 01/17/17 07:30 [place] # 0.5 K/uL (0.0-0.8) 01/17/17 07:30 Eos # 1.1 K/uL (0.0-0.7) H 01/17/17 07:30 Baso # 0.0 K/uL (0.0-0.2) 01/17/17 07:30 Sodium 141 mmol/L (132-148) 01/17/17 07:30 Potassium 3.7 mmol/L (3.6-5.2) 01/17/17 07:30 Chloride 104 mmol/L (98-107) 01/17/17 07:30 Carbon Dioxide 23 mmol/L (22-30) 01/17/17 07:30 Anion Gap 17 (10-20) 01/17/17 07:30 BUN 9 mg/dL (7-17) 01/17/17 07:30 Creatinine 0.5 MG/DL (0.7-1.2) L 01/17/17 07:30 Est GFR ( Amer) > 60 01/17/17 07:30 Est GFR (Non-Af Amer) > 60 01/17/17 07:30 Random Glucose 80 mg/dL (65-105) 01/17/17 07:30 Calcium 8.4 mg/dl (8.6-10.4) L 01/17/17 07:30 Phosphorus 4.0 mg/dL (2.5-4.5) 01/16/17 11:36 Magnesium 2.1 mg/dL (1.6-2.3) 01/16/17 11:36 Total Bilirubin 1.2 mg/dL (0.2-1.3) 01/17/17 07:30 AST 16 U/L (14-36) 01/17/17 07:30 ALT 29 U/L (9-52) 01/17/17 07:30 Alkaline Phosphatase 69 U/L (38-126) 01/17/17 07:30 Total Protein 6.5 g/dL (6.3-8.3) 01/17/17 07:30 Albumin 3.5 g/dL (3.5-5.0) 01/17/17 07:30 Globulin 3.1 gm/dL (2.2-3.9) 01/17/17 07:30 Albumin/Globulin Ratio 1.1 (1.0-2.1) 01/17/17 07:30 Lipase 60 U/L (23-300) 01/15/17 18:53 Urine Color Yellow (YELLOW) 01/15/17 18:41 Urine Clarity Clear (Clear) 01/15/17 18:41 Urine pH 5.0 (5.0-8.0) 01/15/17 18:41 Ur Specific [place] 1.025 (1.003-1.030) 01/15/17 18:41 Urine Protein Negative mg/dL (NEGATIVE) 01/15/17 18:41 Urine Glucose (UA) Normal mg/dL (Normal) 01/15/17 18:41 Urine Ketones Trace mg/dL (NEGATIVE) 01/15/17 18:41 Urine Blood 1+ (NEGATIVE) H 01/15/17 18:41 Urine Nitrate Negative (NEGATIVE) 01/15/17 18:41 Urine Bilirubin Negative (NEGATIVE) 01/15/17 18:41 Urine Urobilinogen Normal mg/dL (0.2-1.0) 01/15/17 18:41 Ur Leukocyte Esterase 1+ Leanna/uL (Negative) H 01/15/17 18:41 Urine WBC (Auto) 7 /hpf (0-5) H 01/15/17 18:41 Urine RBC (Auto) 4 /hpf (0-3) H 01/15/17 18:41 Ur Squamous Epith Cells 6 /hpf (0-5) H 01/15/17 18:41 Ur Transition Epith Cell < 1 /hpf (0-3) 01/15/17 18:41 Urine Bacteria Rare (<OCC) 01/15/17 18:41 Urine HCG, Qual Negative (NEGATIVE) 01/16/17 20:46 - Hospital Course Hospital Course: HPI "Patient is a 22 year old female with no past medical history who presents to the ED with RLQ abdominal pain that started yesterday at 8:30pm, while the patient was asleep. Patient states that her abdominal pain was initially diffuse but currently localized to the RLQ and LLQ. Patient states that her RLQ abdominal pain is a constant 8/10 pulsating and pulling pain, while her LLQ pain is a 10/10 intermittent pain. Furthermore, patient reports diffuse cramping abdominal pain. Patient states that her pain is exacerbated with positional changes and sitting. Patient states that she had similar episode December 14, 2016, where she was admitted to [facility] and treated with IV antibiotics and was discharged with PO antibiotics. Patient states since her hospitalization at [place], she has been experiencing intermittent abdominal distention. Currently, patient denies fever, nausea, vomiting, chest pain, SOB, diarrhea, constipation, change in bowel habits, hematochezia, urinary symptoms, change in appetite, recent sickness or contact but does admits to night sweats, chills and headache." Hospital Course Stump Appendicitis: CT abdomen/pelvis showed inflammation around the appendiceal stump. Surgery was consulted. Surgical intervention not recommended as per Dr. Carr. Advised to treat with Cipro & Flagyl. WBC decreased from 12.2 to 9.9 to 8.7. Prophylactic Measures: SCDs placed for DVT ppx. Pepcid 20 mg PO given for GI ppx. Patient treated for yeast infection with Diflucan 150 mg PO. Patient's abdominal pain is much improved. Patient able to tolerate diet and has no complaints. Patient will follow up with surgeon, Dr. Huerta (surgery) as an outpatient. Patient cleared for discharge as per Dr. Lindo and Dr. Carr. This is a summary of the patient's hospital course, please see chart for details. Discharge Exam - Head Exam Head Exam: ATRAUMATIC, NORMAL INSPECTION, NORMOCEPHALIC - Eye Exam Eye Exam: EOMI, Normal appearance - ENT Exam ENT Exam: Mucous Membranes Moist - Neck Exam Neck exam: Full Rom - Respiratory Exam Respiratory Exam: Clear to PA & Lateral, NORMAL BREATHING PATTERN, UNREMARKABLE. absent: Rales, Rhonchi, Wheezes, Respiratory Distress, Stridor - Cardiovascular Exam Cardiovascular Exam: REGULAR RHYTHM, RRR. absent: Gallop, JVD, Rubs, Systolic Murmur - GI/Abdominal Exam GI & Abdominal Exam: Normal Bowel Sounds, Soft. absent: Distended, Firm, Guarding - Extremities Exam Extremities exam: full ROM - Neurological Exam Neurological exam: Alert, Oriented x3 - Psychiatric Exam Psychiatric exam: Normal Affect, Normal Mood - Skin Skin Exam: Intact, Normal Color, Warm Discharge Plan - Discharge Medications Prescriptions: Ciprofloxacin HCl [Cipro] 500 mg PO BID #14 tablet Metronidazole [Flagyl] 500 mg PO TID #21 tablet - Follow Up Plan Condition: STABLE Disposition: HOME/ ROUTINE Instructions: Ciprofloxacin (By mouth), Metronidazole (By mouth), Appendicitis (GEN), Acute Abdominal Pain (GEN) Additional Instructions: Patient is stable for discharge as per Dr. Lindo and Dr. Carr. Patient is to go home on Cipro 400 mg twice a day and Flagyl 500 mg three times per day. Patient should call to schedule an appointment with Dr. Huerta. The appointment should be after completion of her antibiotics (after January 24). If patient' s symptoms return or increase, patient should immediately return to the Emergency Room. Instructions discussed with patient who understands and agrees. Medicaciones: Ciproflaxin 400mg, 1 pastilla, dos veces al alexandra. Flagyl 500mg, 1 pastilla, ash veces al alexandra. Porfavor llamar para hacer ted con Dr Huerta despues que termines los antibioticos (). Si los simptomas se empeoran o regresan porfavor regrese a jenn de emergencia. Referrals: Hussain Huerta MD [Medical Doctor] - <Hai Lindo - Last Filed: 01/17/17 17:48> Provider - Provider Date of Admission: 01/16/17 01:03 Attending physician: Omar Al MD Hospital Course - Lab Results Lab Results: Most Recent Lab Values WBC 8.7 K/uL (4.8-10.8) 01/17/17 07:30 RBC 3.85 Mil/uL (3.80-5.20) 01/17/17 07:30 Hgb 12.0 g/dL (11.0-16.0) 01/17/17 07:30 Hct 35.7 % (34.0-47.0) 01/17/17 07:30 MCV 92.8 fL (81.0-99.0) 01/17/17 07:30 MCH 31.2 pg (27.0-31.0) H 01/17/17 07:30 MCHC 33.6 g/dL (33.0-37.0) 01/17/17 07:30 RDW 13.2 % (11.5-14.5) 01/17/17 07:30 Plt Count 215 K/uL (130-400) 01/17/17 07:30 MPV 9.2 fL (7.2-11.7) 01/17/17 07:30 Neut % (Auto) 46.3 % (50.0-75.0) L 01/17/17 07:30 Lymph % (Auto) 36.2 % (20.0-40.0) 01/17/17 07:30 [place] % (Auto) 5.2 % (0.0-10.0) 01/17/17 07:30 Eos % (Auto) 12.1 % (0.0-4.0) H 01/17/17 07:30 Baso % (Auto) 0.2 % (0.0-2.0) 01/17/17 07:30 Neut # 4.0 K/uL (1.8-7.0) 01/17/17 07:30 Lymph # 3.2 K/uL (1.0-4.3) 01/17/17 07:30 [place] # 0.5 K/uL (0.0-0.8) 01/17/17 07:30 Eos # 1.1 K/uL (0.0-0.7) H 01/17/17 07:30 Baso # 0.0 K/uL (0.0-0.2) 01/17/17 07:30 Sodium 141 mmol/L (132-148) 01/17/17 07:30 Potassium 3.7 mmol/L (3.6-5.2) 01/17/17 07:30 Chloride 104 mmol/L (98-107) 01/17/17 07:30 Carbon Dioxide 23 mmol/L (22-30) 01/17/17 07:30 Anion Gap 17 (10-20) 01/17/17 07:30 BUN 9 mg/dL (7-17) 01/17/17 07:30 Creatinine 0.5 MG/DL (0.7-1.2) L 01/17/17 07:30 Est GFR ( Amer) > 60 01/17/17 07:30 Est GFR (Non-Af Amer) > 60 01/17/17 07:30 Random Glucose 80 mg/dL (65-105) 01/17/17 07:30 Calcium 8.4 mg/dl (8.6-10.4) L 01/17/17 07:30 Phosphorus 4.0 mg/dL (2.5-4.5) 01/16/17 11:36 Magnesium 2.1 mg/dL (1.6-2.3) 01/16/17 11:36 Total Bilirubin 1.2 mg/dL (0.2-1.3) 01/17/17 07:30 AST 16 U/L (14-36) 01/17/17 07:30 ALT 29 U/L (9-52) 01/17/17 07:30 Alkaline Phosphatase 69 U/L (38-126) 01/17/17 07:30 Total Protein 6.5 g/dL (6.3-8.3) 01/17/17 07:30 Albumin 3.5 g/dL (3.5-5.0) 01/17/17 07:30 Globulin 3.1 gm/dL (2.2-3.9) 01/17/17 07:30 Albumin/Globulin Ratio 1.1 (1.0-2.1) 01/17/17 07:30 Lipase 60 U/L (23-300) 01/15/17 18:53 Urine Color Yellow (YELLOW) 01/15/17 18:41 Urine Clarity Clear (Clear) 01/15/17 18:41 Urine pH 5.0 (5.0-8.0) 01/15/17 18:41 Ur Specific [place] 1.025 (1.003-1.030) 01/15/17 18:41 Urine Protein Negative mg/dL (NEGATIVE) 01/15/17 18:41 Urine Glucose (UA) Normal mg/dL (Normal) 01/15/17 18:41 Urine Ketones Trace mg/dL (NEGATIVE) 01/15/17 18:41 Urine Blood 1+ (NEGATIVE) H 01/15/17 18:41 Urine Nitrate Negative (NEGATIVE) 01/15/17 18:41 Urine Bilirubin Negative (NEGATIVE) 01/15/17 18:41 Urine Urobilinogen Normal mg/dL (0.2-1.0) 01/15/17 18:41 Ur Leukocyte Esterase 1+ Leanna/uL (Negative) H 01/15/17 18:41 Urine WBC (Auto) 7 /hpf (0-5) H 01/15/17 18:41 Urine RBC (Auto) 4 /hpf (0-3) H 01/15/17 18:41 Ur Squamous Epith Cells 6 /hpf (0-5) H 01/15/17 18:41 Ur Transition Epith Cell < 1 /hpf (0-3) 01/15/17 18:41 Urine Bacteria Rare (<OCC) 01/15/17 18:41 Urine HCG, Qual Negative (NEGATIVE) 01/16/17 20:46 Attending/Attestation - Attestation I have personally seen and examined this patient.: Yes I have fully participated in the care of the patient.: Yes I have reviewed all pertinent clinical information, including history, physical exam and plan: Yes Notes (Text): 01/17/17 17:47 Patient was seen and examined at bedside with the resident neck and patient feels comfortable. Pain has improved significantly. Patient has been started on regular diet by surgery. She is also cleared for discharge by surgery. We will discharge the patient on oral antibiotics. I agree with the discharge note by the resident.
== END 2017-01-17 15:17 | disposition home or self-care (01) | DRG 189 ==
LOC: C.ER 17:11 → C.9OBSV 21:25 → OBSVTOIN 01-16 01:03 → C.9E 01-16 01:03 → C.5T 01-16 01:25
PROVIDERS: ADMIT Internal Medicine; ATTEND Internal Medicine
DX: K35.80 Unspecified acute appendicitis (principal); B37.9 Candidiasis, unspecified